=== PATIENT | male | born 1975 | race Caucasian/White ===

== ENCOUNTER → 2016-06-05 | Outpatient (CLI) | payer MEDICARE ==
[~2016-06-05] MED LIST: BACTRIM DS TAB1 EACH PO; DICLOFENAC SODI25 MG PO; LISINOPRIL10 MG PO; METOPROLOL TART50 MG PO; MODERIBA PO; NORCO 5-325 TA1 EACH PO; PROBIOTIC1 EAC1 PO; VIEKIRA PAK1 EACH PO; ZOFRAN4 MG PO
[2016-06-05 10:30] LABS: BUN/CREATININE RATIO 10 (0-10)
[2016-06-05 10:46] LABS: HEMOGLOBIN 14.3 gm/dl (14.0-17.5); RED BLOOD COUNT 4.7 M/UL (4.20-5.50); WHITE BLOOD COUNT 6.8 K/UL (4.5-11.0)
== END ==
LOC: OPSV2 06-02 09:00
PROVIDERS: Orthopaedic Surgery
DX: Z01.812 Encounter for preprocedural laboratory examination (principal); Z01.810 Encounter for preprocedural cardiovascular examination; M67.442 Ganglion, left hand
CPT/HCPCS: 36415; 80048; 85025; 93005

== ENCOUNTER → 2016-06-08 | Day surgery (SDC) | payer MEDICARE ==
[~2016-06-08] VITALS: Ht 188 cm; Wt 105.7 kg
== END | disposition home or self-care (01) ==
LOC: OR 10:13
PROVIDERS: Orthopaedic Surgery
PROC: 0XBK0ZZ Excision of Left Hand, Open Approach (ICD-10-PCS; principal; 2016-06-08 17:45)
DX: M67.442 Ganglion, left hand (principal); I10 Essential (primary) hypertension; M19.90 Unspecified osteoarthritis, unspecified site; F17.210 Nicotine dependence, cigarettes, uncomplicated; Z86.19 Personal history of other infectious and parasitic diseases; Z86.69 Personal history of other diseases of the nervous system and sense organs; Z79.899 Other long term (current) drug therapy
CPT/HCPCS: J2250; J3010; J7030; J7120